=== PATIENT | male | born 1970 | race Hispanic/Latino ===

== ENCOUNTER 2018-07-24 03:25 | Emergency (ER) | payer OTHER ==
[~2018-07-24] VITALS: Ht 170.2 cm; Wt 111.1 kg
[2018-07-24] MEDS ORDERED: LABETALOL HCL 5 MG/ML 20ML VIAL IV STA (03:58)
[2018-07-24] MEDS ORDERED: DILTIAZEM HCL 5 MG/ML 5 ML VIAL IV STA (04:08)
[2018-07-24] MEDS ORDERED: SODIUM CHLORIDE 0.9% 1000ML 1,000 ML IV ONE (04:15)
[2018-07-24] MEDS ORDERED: METOPROLOL TARTRATE INJ 1 MG/ML VIAL IV ONE ×2 (04:15)
--- NOTE | 2018-07-24 04:43 | Diagnostic Imaging Report ---
Exam: AP view of the chest Indication: Right leg swelling, tachycardia Comparison: None Findings: The heart is within normal size limits for technique and lordotic view. Central vascular congestion. No consolidations. Normal appearance of the bones. Impression: Central vascular congestion. Signed by: Dr. Rika Saavedra M.D. on 07/24/2018 4:39 AM
[2018-07-24] MEDS ORDERED: DILTIAZEM HCL 5 MG/ML 5 ML VIAL IV ONE (04:45)
== END 2018-07-24 05:55 | disposition other institution (70) ==
LOC: FSED 03:25
DX: R00.2 Palpitations (principal); I48.2 Chronic atrial fibrillation
CPT/HCPCS: 71045; 80053; 84484; 85025; 93005; 99284; J7030